=== PATIENT | male | born 1970 | race Caucasian/White ===

== ENCOUNTER → 2022-09-25 12:28 | Outpatient (CLI) | payer BC, SELFPAY ==
--- NOTE | ~2022-09-25 | MR_ITS ---
EXAMINATION: MR knee LT wo con DATE: 09/25/2022 13:10 INDICATION: Left knee pain and swelling TECHNIQUE: Magnetic resonance imaging (MRI) of the left knee was performed without intravenous contra st. Sequences included coronal PD-weighted FSE, coronal PD-weighted FS FSE, sagittal T2-weighted FSE , sagittal PD-weighted FS FSE and axial PD weighted fat saturated FSE. COMPARISON: None. FINDINGS: Medial compartment: Complex tear of the body and posterior horn of the medial meniscus with macerated appearance of the p osterior horn. Extensive full/near full-thickness chondral ulceration with underlying subarticular ed keturah-like and cystlike changes along large portion of the medial tibial plateau and central aspect of the weightbearing lateral femoral condyle. Moderate sized marginal osteophytes are present. Lateral compartment: Lateral meniscus is normal. Small region of deep chondral ulceration with underlying edema-like signa l change at the remaining cartilage in the lateral compartment appears normal. The cephalad aspect of the articular surface of the lateral intercondylar eminence. Small marginal osteophytes are present. Patellofemoral compartment: Chondral fissuring involving less than 50% the cartilage thickness at the cephalad aspect of the resendez llar apical ridge. Mild partial-thickness cartilage loss with chondral surface regularity at the caud al aspect of the medial and lateral patellar facets. Small central subchondral osteophytes and mild s ubarticular edema-like signal change at the inferior aspect of the medial trochlea at the site of marek p chondral ulceration. Small marginal osteophytes are present. Ligaments and tendons: Anterior and posterior cruciate ligaments are normal. The medial collateral ligament and fibular juan alberto ateral ligament complex are normal. Distal quadriceps tendinopathy without tear. Patellar tendon is n ormal. The visualized medial and lateral hamstring tendons as well as the iliotibial band are normal. Fluid: Small left knee joint effusion with moderate synovitis at the suprapatellar pouch. 2 to 3 mm loose os teochondral bodies at the posterior recess overlying the posterior most weightbearing lateral femoral condyle. Large Nath's cyst measuring 10.4 x 2.9 x 3.4 cm. Osseous/other: Bone alignment is normal. No fracture or pathologic marrow replacing process. No fracture or patholog ic marrow replacing process. IMPRESSION: 1. Complex medial meniscal tear. 2. Tricompartmental osteoarthritis, severe with extensive high-grade chondromalacia in the medial com partment and mild with localized small regions of high-grade chondral malacia in the lateral and resendez llofemoral compartments. 3. Likely reactive small knee joint effusion with prominent synovitis at the suprapatellar pouch. 4. Large Nath's cyst. Reviewed, dictated and finalized at location L. IMPRESSION: 1. Complex medial meniscal tear. 2. Tricompartmental osteoarthritis, severe with extensive high-grade chondromal acia in the medial compartment and mild with localized small regions of high-gr bandar chondral malacia in the lateral and patellofemoral compartments. 3. Likely reactive small knee joint effusion with prominent synovitis at the eckert prapatellar pouch. 4. Large Nath's cyst.
== END ==
PROVIDERS: PCP Internal Medicine; Visit Provider Orthopaedic Surgery
DX: S83.232A Complex tear of medial meniscus, current injury, left knee, initial encounter (principal); M25.462 Effusion, left knee; M71.22 Synovial cyst of popliteal space [Baker], left knee; M17.12 Unilateral primary osteoarthritis, left knee; T14.90XA Injury, unspecified, initial encounter
CPT/HCPCS: 73721

== ENCOUNTER → 2023-02-13 09:17 | Outpatient (CLI) | payer BC, SELFPAY ==
--- NOTE | ~2023-02-13 | XR_ITS ---
PA, oblique, and lateral views of the left second finger CLINICAL HISTORY: Injury FINDINGS: There is a transverse, essentially nondisplaced fracture of the distal tuft of the second d istal phalanx. No other fracture or dislocation seen. Joint spaces are preserved. Soft tissues are un remarkable. IMPRESSION: Transverse, nondisplaced fracture of the distal tuft of the second distal phalanx. Reviewed, dictated and finalized at location M. IMPRESSION: Transverse, nondisplaced fracture of the distal tuft of the second distal phala nx.
== END ==
PROVIDERS: PCP Nurse Practitioner; Visit Provider Nurse Practitioner
DX: M79.645 Pain in left finger(s) (principal); S62.661A Nondisplaced fracture of distal phalanx of left index finger, initial encounter for closed fracture
CPT/HCPCS: 73140

== ENCOUNTER → 2023-02-22 11:02 | Outpatient (CLI) | payer BC, SELFPAY ==
--- NOTE | ~2023-02-22 | XR_ITS ---
EXAMINATION: XR elbow RT min 3V INDICATION: Right elbow pain TECHNIQUE: Four views of the right elbow are obtained. COMPARISON: None available FINDINGS: Bone alignment is normal. There is no fracture. There is mild osteoarthritis of the elbow. No joint effusion is identified. Areas of heterotopic ossification in the olecranon and humeral condy les likely reflect enthesophytes versus tendinous calcification. IMPRESSION: 1. No acute osseous abnormality. Reviewed, dictated and finalized at location F.
== END ==
PROVIDERS: PCP Nurse Practitioner; Visit Provider Nurse Practitioner
DX: M25.521 Pain in right elbow (principal); W19.XXXA Unspecified fall, initial encounter
CPT/HCPCS: 73080

== ENCOUNTER 2023-09-01 08:31 | Emergency (ER) | payer BC, SELFPAY ==
[2023-09-01 08:36] VITALS: BP 139/88; PULSE 76; RESP 20; TEMP 36.7; O2SAT 100
--- NOTE | 2023-09-01 08:58 | ED.SKABFB ---
HPI - Skin/Abscess/Foreign Bdy General Chief complaint: Skin/Abscess/Foreign Body Stated complaint: Welts all over History of Present Illness HPI narrative: Patient presents with hives to both arms and legs. And abdomen. Patient states he had his eyes dilated Saturday and the hives broke out shortly afterwards. No respiratory problems patient has been taking Benadryl and some old prednisone that his had at home. Related Data Allergies Allergy/AdvReac Type Severity Reaction Status Date / Time itraconazole Allergy Unknown Unknown Verified 04/23/23 08:10 Review of Systems Review of Systems: CONSTITUTIONAL: Denies chills, or sweats. Reports fever and generalized body aches EYES: Denies visual changes, redness, or discharge. ENT: Denies otalgia. Reports nasal congestion runny nose and sore throat CARDIOVASCULAR: Denies chest pain, palpitations, or edema. RESPIRATORY: Denies dyspnea. Reports occasional cough GASTROINTESTINAL: Denies abdominal pain, nausea, vomiting, or diarrhea. GENITOURINARY: Denies dysuria or hematuria. SKIN: Denies rash or itching. MUSCULOSKELETAL: Denies back pain, joint pain, or myalgia. Reports generalized body aches NEUROLOGIC: Denies headache, numbness, or weakness. PSYCHIATRIC: Denies anxiety or depression. [facility] Past Medical History Medical History Acute deep vein thrombosis (DVT) of distal vein of left lower extremity Histoplasmosis pneumonia History of deep venous thrombosis (DVT) of distal vein of left lower extremity Hx of deep venous thrombosis Hx of histoplasmosis Hx of pulmonary embolus Osteoarthritis of left knee Pulmonary embolism and infarction Social History Social History Smoking packs per day: 1 Smoking cigarettes per day: 20.0 Years smoked: 20 Smoking pack-years: 20.00 Smoking status: Former smoker Tobacco type: cigarettes Second hand tobacco smoke exposure: Yes Smoking end date: 05/27/14 Alcohol intake: current Alcohol use details: Social Substance use: never Substance use type: does not use Lack of Transportation: No Lack of Food: Never True Current Housing: I Have Housing Concerned About Future Housing: No Difficulty Paying Gas/Electric Bills: No Difficulty Paying for Meds: No Currently Unemployed: No Education: High School Diploma/GED Difficulty w/ Childcare or Family Care: No Living arrangements: with family Occupation/Education: occupation 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 There is no relevant family history pertinent to the presenting complaint Exam Narrative: The patient is a well-developed, well-nourished in no acute distress. SKIN: Skin is warm and dry without erythema, swelling or exudate. There is good turgor. No tenting. Hives to both arms abdomen and both legs HEAD: Atraumatic. Normocephalic. No temporal or scalp tenderness. EYES: Moist and bright. Sclera and conjunctivae normal. No discharge. PERRLA. Extraocular motions intact. Gross visual acuity intact. EARS: Pinna is normal shape and contour. Clear external auditory canals. TM pearly truong with good cone of light, no erythema or suppuration. Bilateral cerumen noted no gross hearing deficit. NOSE: pink, moist mucosa with good air movement. Clear rhinorrhea without nasal flaring. Septum midline. Mouth: moist mucous membranes. THROAT; mild erythema noted to posterior oropharynx with moderate postnasal drainage. Without exudate or ulceration.. Uvula midline. Normal movement of soft palate. NECK: Supple and nontender with full range of motion without discomfort. No meningeal signs. LUNGS: Equal and bilateral breath sounds without wheezes, rales or rhonchi. CHEST: The chest wall is without retractions or use
[2023-09-01] MEDS: methylPREDNISolone SOD SUCC 125 MG VIAL IM (09:08)
== END 2023-09-01 09:23 | disposition home or self-care (01) ==
PROVIDERS: Emergency Provider Nurse Practitioner Family; PCP Family Medicine
DX: L50.9 Urticaria, unspecified (principal); Z87.891 Personal history of nicotine dependence; M17.12 Unilateral primary osteoarthritis, left knee; Z86.718 Personal history of other venous thrombosis and embolism; Z86.711 Personal history of pulmonary embolism
CPT/HCPCS: 96372; 99213; G0463; J2919

== ENCOUNTER 2023-10-04 08:02 | Emergency (ER) | payer BC, SELFPAY ==
[2023-10-04 08:07] VITALS: BP 140/90; PULSE 89; RESP 16; TEMP 36.4; O2SAT 98
--- NOTE | 2023-10-04 08:10 | ED.GENADULT ---
HPI - General Adult General Chief complaint: Skin/Abscess/Foreign Body Stated complaint: hives Time Seen by Provider: 10/04/23 08:15 Source: patient, RN notes reviewed and old records reviewed Mode of arrival: ambulatory Limitations: no limitations History of Present Illness HPI narrative: 53 year old male who presents to [facility] care with generalized hives which started last night and patient reports that he took some left over Prednisone. He reports that he awoke this morning with hives remaining and took another dose of prednisone and a Benadryl which has helped the itching and it has decreased the hives some. Patient reports no new food, no new environmental exposures, denies any new soaps,laundry detergents, no new medications. Patient reports that he had a similar episode about a month ago after having eyes dilated for eye exam but has not been to the eye doctor. Patient denies any difficulty swallowing or any difficulty with his breathing. MD complaint: hives Onset (ago): day(s) (yesterday evening) Severity: moderate Treatments prior to arrival: other (left over Prednisone and Benadryl) Related Data Allergies Allergy/AdvReac Type Severity Reaction Status Date / Time benoxinate Allergy Intermediate Hives Verified 10/04/23 08:18 tropicamide Allergy Intermediate Hives Verified 10/04/23 08:18 itraconazole Allergy Unknown Unknown Verified 10/04/23 08:18 fluorescein sodium Allergy Intermediate Hives Uncoded 10/04/23 08:18 Review of Systems Review of Systems: CONSTITUTIONAL: Denies fever, chills, or sweats. CARDIOVASCULAR: Denies chest pain, palpitations, or edema. RESPIRATORY: Denies cough or dyspnea. SKIN: Reports hives generalized to body MUSCULOSKELETAL: Denies joint pain or myalgia. NEUROLOGIC: Denies headache, numbness, or weakness. All systems reviewed & are unremarkable except as noted in HPI and below PMFSH Past Medical History Medical History Acute deep vein thrombosis (DVT) of distal vein of left lower extremity Histoplasmosis pneumonia History of deep venous thrombosis (DVT) of distal vein of left lower extremity Hx of deep venous thrombosis Hx of histoplasmosis Hx of pulmonary embolus Osteoarthritis of left knee Pulmonary embolism and infarction Social History Social History Smoking packs per day: 1 Smoking cigarettes per day: 20.0 Years smoked: 20 Smoking pack-years: 20.00 Smoking status: Former smoker Tobacco type: cigarettes Second hand tobacco smoke exposure: Yes Smoking end date: 05/27/14 Alcohol intake: current Alcohol use details: Social Substance use: never Substance use type: does not use Lack of Transportation: No Lack of Food: Never True Current Housing: I Have Housing Concerned About Future Housing: No Difficulty Paying Gas/Electric Bills: No Difficulty Paying for Meds: No Currently Unemployed: No Education: High School Diploma/GED Difficulty w/ Childcare or Family Care: No Living arrangements: with family Occupation/Education: occupation 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 There is no relevant family history pertinent to the presenting complaint Exam Narrative: GENERAL: Well-appearing, well-nourished, and in no acute distress. HEAD: Normocephalic, atraumatic. EYES: PERRLA, conjunctivae clear, and EOMI. ENT: Mucous membranes moist. Oropharynx without edema, erythema or lesions.m, no trismus or any Willie angina NECK: Supple. No lymphadenopathy CHEST: Clear to auscultation. No respiratory distress.SAO2 98% on room air HEART: Regular rate and rhythm. SKIN: Warm, dry.? Patches of red whelping hives on body which do jordi NEURO:? Alert and oriented x3. PSYCH: Normal mood and a
== END 2023-10-04 08:40 | disposition home or self-care (01) ==
PROVIDERS: Emergency Provider Registered Nurse; PCP Family Medicine
DX: L50.9 Urticaria, unspecified (principal); Z87.891 Personal history of nicotine dependence; M17.12 Unilateral primary osteoarthritis, left knee; Z86.718 Personal history of other venous thrombosis and embolism; Z86.711 Personal history of pulmonary embolism
CPT/HCPCS: 99213; G0463

== ENCOUNTER 2023-10-05 07:41 | Emergency (ER) | payer BC, SELFPAY ==
[2023-10-05 07:42] VITALS: BP 132/105; PULSE 80; RESP 16; TEMP 36.5; O2SAT 97
[2023-10-05] MEDS: EPINEPHrine HCL INJ 1 MG/ML AMPUL 0.3 MG SUB-Q (08:02)
[2023-10-05] MEDS: methylPREDNISolone SOD SUCC 125 MG VIAL IV PUSH (08:03)
[2023-10-05] MEDS: diphenhydrAMINE HCl INJ 50 MG/ML VIAL 25 MG IV PUSH (08:04)
[2023-10-05 08:31] VITALS: BP 123/63; PULSE 79; RESP 16; O2SAT 97
[2023-10-05 09:31] VITALS: BP 144/65; PULSE 82; RESP 21; O2SAT 95
--- NOTE | 2023-10-05 10:10 | ED.ALLEREA ---
HPI - Allergic Reaction General Chief complaint: Allergic Reaction Stated complaint: Allergic Reaction Time Seen by Provider: 10/05/23 07:44 Source: patient Mode of arrival: ambulatory Limitations: no limitations History of Present Illness HPI narrative: 53-year-old here with a complaint diffuse hives since this morning. Patient states that he had similar episode 2 days ago was at urgent care was given Medrol Dosepak, Pepcid and was advised to take Zyrtec. Patient states that he woke up as usual was drinking coffee of sudden broken wooden rash. Patient denies using any new detergents or so. No new antibiotics or medications. Also states that his throat is itchy and lips are swollen complaint: allergic reaction, hives and facial swelling Onset (ago): minute(s) (30) Exposure: unknown Symptoms: rash, itching, facial swelling and lip swelling Treatment prior to arrival: steroids Previous Allergic Reaction History: prior ED visit(s) Related Data Allergies Allergy/AdvReac Type Severity Reaction Status Date / Time benoxinate Allergy Intermediate Hives Verified 10/04/23 08:18 tropicamide Allergy Intermediate Hives Verified 10/04/23 08:18 itraconazole Allergy Unknown Unknown Verified 10/04/23 08:18 fluorescein sodium Allergy Intermediate Hives Uncoded 10/04/23 08:18 Review of Systems Review of Systems: All systems reviewed & are unremarkable except as noted in HPI and below Constitutional: Constitutional: Reports no additional constitutional complaints Eyes: Eyes: Reports no additional eye complaints ENT: Reports as per HPI Cardiovascular: Cardiovascular: Reports no additional cardiovascular complaints Respiratory: Respiratory: Reports no additional respiratory complaints Gastrointestinal: Gastrointestinal: Reports no additional gastrointestinal complaints Musculoskeletal: Musculoskeletal: Reports no additional musculoskeletal complaints Integumentary/Breasts: Skin/Breast: Reports system reviewed and no additional complaints, except as docu PMFSH Past Medical History Medical History Acute deep vein thrombosis (DVT) of distal vein of left lower extremity Histoplasmosis pneumonia History of deep venous thrombosis (DVT) of distal vein of left lower extremity Hx of deep venous thrombosis Hx of histoplasmosis Hx of pulmonary embolus Osteoarthritis of left knee Pulmonary embolism and infarction Social History Social History Smoking packs per day: 1 Smoking cigarettes per day: 20.0 Years smoked: 20 Smoking pack-years: 20.00 Smoking status: Former smoker Tobacco type: cigarettes Second hand tobacco smoke exposure: Yes Smoking end date: 05/27/14 Alcohol intake: current Alcohol use details: Social Substance use: never Substance use type: does not use Lack of Transportation: No Lack of Food: Never True Current Housing: I Have Housing Concerned About Future Housing: No Difficulty Paying Gas/Electric Bills: No Difficulty Paying for Meds: No Currently Unemployed: No Education: High School Diploma/GED Difficulty w/ Childcare or Family Care: No Living arrangements: with family Occupation/Education: occupation 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 HEAD: Normocephalic, atraumatic. EYES: PERRLA and EOMI. ENT: Nares clear, no rhinorrhea or epistaxis. Mucous membranes moist. Uvula midline no edema noted NECK: Supple. CHEST: Clear to auscultation. No respiratory distress. HEART: Regular rate and rhythm. No murmur heard. Normal peripheral pulses. ABDOMEN: Soft, nontender, nondistended, normal active bowel sounds. EXTREMITIES: Normal range of motion. No edema. SKIN: Diffuse hives NEURO: No focal deficits. Alert and oriented x3. PSYCH: Normal mood and
[2023-10-05 10:15] VITALS: BP 140/62; PULSE 72; RESP 16; O2SAT 100
== END 2023-10-05 10:15 | disposition home or self-care (01) ==
PROVIDERS: Emergency Provider Family Medicine; PCP Family Medicine
DX: L50.9 Urticaria, unspecified (principal); M17.12 Unilateral primary osteoarthritis, left knee; Z86.718 Personal history of other venous thrombosis and embolism; Z87.01 Personal history of pneumonia (recurrent); Z86.711 Personal history of pulmonary embolism; Z87.891 Personal history of nicotine dependence
CPT/HCPCS: 96372; 96374; 96375; 99284; J0171; J1200; J2919

== ENCOUNTER 2023-10-17 07:58 | Outpatient (CLI) | payer BC, SELFPAY ==
--- NOTE | ~2023-10-17 | XR_ITS ---
EXAMINATION: XR chest 2V 10/17/2023 08:13 INDICATION: Chest pain PROCEDURE: 2 view chest COMPARISON: Comparison to multiple prior studies sequentially, with oldest reviewed study dated 10/2018. FINDINGS: The lungs are clear. The cardiomediastinal silhouette is within normal limits. There are no pleural effusions. There is no pneumothorax suspected. IMPRESSION: 1: NO ACUTE CARDIOPULMONARY DISEASE. Reviewed, dictated and finalized at location A.
== END 2023-10-17 07:59 ==
LOC: MICIMG 08:00
PROVIDERS: PCP Family Medicine; Visit Provider Nurse Practitioner Family
DX: R07.9 Chest pain, unspecified (principal)
CPT/HCPCS: 71046

== ENCOUNTER 2023-10-18 15:03 | Outpatient (CLI) | payer BC, SELFPAY ==
--- NOTE | ~2023-10-18 | CT_ITS ---
EXAMINATION: CTA chest PE protocol DATE: 10/18/2023 15:48 INDICATION: Chest pain, unspecified. TECHNIQUE: Computed tomography angiography (CTA) of the chest was performed with 100 mL Omnipaque-350 intravenous contrast timed to evaluate the pulmonary arteries. Coronal maximum intensity projection 3D-reconstructions were created by the technologist. Automated exposure control and iterative reconst ruction technique were employed. The dose-length product was 381.97 mGy-cm. COMPARISON: Chest CT 05/26/2018 FINDINGS: There is mild emphysema. No pleural effusion. The heart size is normal. No pericardial effu [place]. There is no pulmonary embolus. There is thoracic dextroscoliosis. There is severe cervical and thoracic spondylosis. IMPRESSION: 1. No pulmonary embolus. Sensitivity is moderately decreased by motion artifact. 2. Mild emphysema. Reviewed, dictated and finalized at location A. IMPRESSION: 1. No pulmonary embolus. Sensitivity is moderately decreased by motion artifact . 2. Mild emphysema.
== END 2023-10-18 15:04 | disposition home or self-care (01) ==
LOC: ANHIMG 15:04
PROVIDERS: PCP Family Medicine; Visit Provider Nurse Practitioner Family
DX: R79.89 Other specified abnormal findings of blood chemistry (principal); J43.9 Emphysema, unspecified
CPT/HCPCS: 71275; Q9967

== ENCOUNTER 2023-12-19 07:56 | Outpatient (CLI) | payer BC, SELFPAY ==
--- NOTE | 2023-12-27 12:55 | WPDPFTINT ---
PFT Procedure Performed PFT Procedure Performed Spirometry with Pre/Post Bronchodilator Plethysmography (Lung Vol) Diffusing Cap (DLCO) Flow Vol Loop PFT Interpretation DOS: 12/19/2023 REQUESTING: Manda Vargas PA-C REASON FOR TESTING: Emphysema PULMONARY FUNCTION TESTS Results are reliable and reproducible. Repeatability of spirometry FEV1 maneuver pre and post bronchodilator is Grade A. Spirometry: The pre-bronchodilator FEV1 is 3.06 L, 74% predicted, reduced. The pre-bronchodilator FVC is 3.84 L, 73%, reduced. The FEV1/FVC ratio is 80%, normal. After bronchodilator, the FEV1 is 3.16 L, 77%, +3%. The FVC is unchanged. The FEV1/FVC ratio is 82%. Lung volumes: The total lung capacity is 6.23 L, 84%, normal. The residual volume is 2.39 L, 109%, normal. The RV/TLC is 38%, upper limit of normal. Diffusion: DLCO is 22.8, 73%, mildly reduced. The DLCO/VA is 4.67, 107%, normal. Flow volume loop: The flow volume loop has mild coving of the expiratory limb. IMPRESSION: This study shows a mild obstructive ventilatory impairment without significant response to bronchodilator, normal lung volumes and a mild diffusion impairment that normalizes for alveolar volume. Lack of response to bronchodilator should not preclude use if clinically indicated. No prior studies for comparison. Erin Del Real MD
--- NOTE | 2023-12-27 13:05 | WPDSIXMINUTE ---
Six Minute Walk Procedure Procedure Performed Pulmonary Stress Test (6 min walk) Six Minute Walk Six Minute Walk: DOS: 12/19/2023 REQUESTING: Manda Vargas PA-C REASON FOR TESTING: Emphysema SIX MINUTE WALK This test was conducted per ATS guidelines. The initial saturation was 97%, and initial heart rate was 84 beats per minute. The patient walked without stopping, completing 1900 ft/579.1 m. The saturation at the end of testing was 95%, and the heart rate was 89 beats per minute. The minimum saturation during the study was 92%. IMPRESSION: This is a normal study. The patient did not require supplemental oxygen with exertion. Erin Del Real MD
== END 2023-12-19 07:57 | disposition home or self-care (01) ==
PROVIDERS: PCP Nurse Practitioner Family; Visit Provider Physician Assistant
DX: J43.9 Emphysema, unspecified (principal)
CPT/HCPCS: 94060; 94618; 94726; 94729

== ENCOUNTER 2024-01-16 09:38 | Outpatient (CLI) | payer BC, SELFPAY ==
--- NOTE | 2024-02-07 16:11 | P.SLEEP_ITS ---
Sleep Study Date of Study: 01/16/24 Ordering Provider: AG Alvarado Interpreting Physician: Carmen Colon DO Sleep Study Type: Split Polysomnogram Height: 1.83 m Weight: 83.915 kg Body Mass Index: 25.0 Neck Circumference (inches): 15 [place]: 6 Reason for Sleep Study Snoring, daytime hypersomnia Sleep History The patient is a 54-year-old male with anxiety, GERD and COPD that had a sleep study are hard for evaluation of sleep apnea. The patient rarely awakens from sleep short of breath. He denies awakening at night with heartburn, belching or cough. He frequently snores and it is occasionally loud enough that others complain. He rarely has trouble sleeping when he has a cold. He rarely wakes up gasping for air throughout the night. He rarely has breathing problems at night observed by himself or others. He denies sweating excessively at night. He denies having heart palpitations or irregular heartbeats during the night. He occasionally falls asleep during the day but never while driving. He denies sleep paralysis and cataplexy. He rarely has trouble at school or work due to sleepiness. He rarely experiences vivid dreamlike scenes upon awakening or falling asleep. He denies feeling afraid of going to sleep. He rarely has nightmares. He rarely remembers his dreams. He rarely has thoughts racing through his mind. He rarely feels sad or depressed. He rarely has anxiety. He rarely has muscular tension. He occasionally notices parts of his body jerk. He frequently kicks during the night. He denies having crawling and aching feelings in his legs and denies having leg pain during the night. He denies grinding his teeth during sleep and denies awakening with morning jaw pain. He is rarely bothered by pain during the day but never awakened by pain during the night. He occasionally wakes up feeling stiff in the morning. He occasionally wakes up with sore or achy muscles. He denies waking up with pain in the neck, spine or other joints. The goes to bed at 8:00 p.m. on weekdays and at 9:00 p.m. on the weekends. It takes him 20-30 minutes to fall asleep. He wakes up 2-3 times throughout the night to urinate and is able to fall back asleep within 5-10 minutes. He wakes up at 6:00 a.m. on weekdays and at 7:00 a.m. on the weekends. He typically gets 8-9 hours of sleep per night. He will stay in bed for 30 minutes after waking up in the morning. He currently lives with his girlfriend. He denies consuming any caffeinated beverages within 2 hours of bedtime. He denies engaging in physical exercise before bedtime. He will read before falling asleep. He will take naps in the afternoon or the evening and they are refreshing. He consumes 20 oz of a caffeinated beverage per day. He consumes an alcoholic beverage once per month. He denies tobacco and recreational drug use. [facility] Past Medical History Medical History Acute deep vein thrombosis (DVT) of distal vein of left lower extremity Histoplasmosis pneumonia History of deep venous thrombosis (DVT) of distal vein of left lower extremity Hx of deep venous thrombosis Hx of histoplasmosis Hx of pulmonary embolus Osteoarthritis of left knee Pulmonary embolism and infarction Social History Social History Smoking packs per day: 1 Smoking cigarettes per day: 20.0 Years smoked: 20 Smoking pack-years: 20.00 Smoking status: Former smoker Tobacco type: cigarettes Second hand tobacco smoke exposure: Yes Smoking end date: 05/27/14 Alcohol intake: current Alcohol use details: Social Substance use: never Substance use type: does not use Do You Feel Safe in your Home?: Yes Lack of Transportation: No Lack of Food: Never True Current Housing: I Have Housing Concerned About Future Housing: No Difficulty Paying Gas/Electric Bills: No Difficulty Paying for Meds: No Currently Unemployed: No Education: High School Diploma/GED Difficulty w/ Childcare or Family Care: No Living arrangements: with family Occupation/Education: occupation 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 Gender identity (if verbalized by the patient): Male Medications Home Medications Medication Instructions Recorded Confirmed Type epinephrine 0.3 mg/0.3 mL 0.3 mg (0.3 mL) IM ONCE #2 ea 10/07/23 12/09/23 Rx injection, auto-injector omeprazole 40 mg capsule,delayed 40 mg PO DAILY #90 caps 10/17/23 12/09/23 Rx release albuterol sulfate 90 mcg/actuation 2 inh inhalation Q4H PRN shortness 10/31/23 12/09/23 Rx aerosol inhaler of breath or wheezing #8.5 grams tiotropium bromide 2.5 2 inh inhalation DAILY #4 grams 10/31/23 12/09/23 Rx mcg/actuation mist for inhalation (Spiriva Respimat) celecoxib 200 mg capsule (Celebrex) 200 mg PO DAILY #30 caps 12/03/23 12/09/23 Rx escitalopram oxalate 10 mg tablet 10 mg PO DAILY #90 tabs 12/03/23 12/09/23 Rx eszopiclone 2 mg tablet (Lunesta) 2 mg PO ONCE #1 tablet 12/09/23 12/09/23 Rx Sleep Procedure A full night polysomnogram using the You[employer] multi-channel system recorded the standard physiologic parameters including EEG, EOG, submentalis EMG, anterior tibialis EMG, EKG, body position, nasal and oral airflow using nasal pressure sensor and thermistor.? Respiratory parameters of chest and abdominal movements were recorded with Respiratory Inductance Plethysmography belts. Oxygen saturation was recorded by pulse oximetry. Video monitoring was also performed. Sleep stages, periodic limb movements, and EEG arousals were scored in 30 second epochs according to the criteria of the AASM Scoring Manual. The Apnea-Hypopnea Index was calculated using CMS guidelines for definition of hypopnea with 4% O2 desaturations while scoring respiratory events. Sleep Architecture During the diagnostic portion of the study, the total recording time was 179.3 minutes. The total sleep time was 132.5 minutes. Sleep latency was 19.3 minutes.? REM sleep was not achieved during this portion of the study. Sleep Efficiency was 73.9%. The patient had 21 awakenings for an awakening index of 9.5. Wake after sleep onset time was 27.5 minutes. The patient spent 14.5 minutes, 10.9% of total sleep time in Stage N1. The patient spent 93.0 minutes, 70.2% in Stage N2. The patient spent 25.0 minutes, 18.9% in Stage N3. The patient spent 0.0 minutes, 0.0% in Stage REM sleep. At 11:56:43 PM the patient was placed on PAP treatment and was titrated at pressures ranging from 5 cm H20 up to 12 cmH20 with EPR of 1. During the treatment portion of the study, the total recording time was 341.6 minutes.? The total sleep time was 244.5 minutes. Sleep latency was 40.5 minutes. REM latency was 80.0 minutes. Sleep Efficiency was 71.6%. Wake after Sleep Onset time was 56.5 minutes. The patient spent 25.5 minutes, 10.4% of total sleep time in Stage N1. The patient spent 107.5 minutes, 44.0% in Stage N2. The patient spent 66.5 minutes, 27.2% in Stage N3. The patient spent 45.0 minutes, 18.4% in Stage REM. Respiratory Analysis During the diagnostic portion of the study, the patient had 30 hypopneas, 30 obstructive apneas for an overall Apnea Hypopnea Index of 27.2 events per hour. The REM Apnea Hypopnea Index was 0. The NREM Apnea Hypopnea Index was 27.2. The patient had a Central Apnea Hypopnea Index of 0. There was no evidence of Gato-Leal Respirations. During the treatment portion of the study, the patient had 10 hypopneas, 6 obstructive apneas and 8 central apneas for an overall Apnea Hypopnea Index of 5.9 events per hour. The REM Apnea Hypopnea Index was 1.3. The NREM Apnea Hypopnea Index was 6.9. The patient had a Central Apnea Hypopnea Index of 2.0. There was no evidence of Gato-Leal Respirations. The patient was started on CPAP 5 cm H2O and titrated to CPAP 12 cm H2O with EPR of 1. The patient was able to fall asleep starting on 5 cm H2O with EPR of 1. The patient was able to achieve REM sleep starting on 7 cm H2O with EPR of 1. The patient was able to achieve a residual AHI less than 5 with both NREM and REM sleep in the supine position on 7 cm H2O. On CPAP 7 cm H2O with EPR of 1, the patient spent 31.5 minutes in NREM and 26 minutes in REM with 1 central apnea, resulting in an AHI of 1.0. The patient had a sleep efficiency of 95% on this pressure setting. Arousals During the diagnostic portion of the study, there were a total of 272 arousals for an arousal index of 123.2.? There were 39 respiratory arousals for an index of 17.7. There were 206 periodic limb movement arousals for an index of 93.3.? There were 3 isolated limb movement arousals for an index of 1.4. There were 26 spontaneous arousals for an index of 11.8. During the treatment portion of the study, there were a total of 87 arousals for an index of 21.3.? There were 5 respiratory arousals for an index of 1.2. There were 45 periodic limb movement arousals for an index of 11.0.? There were 13 isolated limb movement arousals for an index of 3.2. There were 26 spontaneous arousals for an index of 6.4. Periodic Limb Movements During the diagnostic portion of the study, the patient had 4 isolated limb movements with an index of 1.8. The patient had 353 periodic limb movements with an index of 159.8, which is elevated (normal <15). The patient had a total of 357 limb movements with a total limb movement index of 161.7. During the treatment portion of the study, the patient had 35 isolated limb movements with an index of 8.6. The patient had 246 periodic limb movements with an index of 60.4, which is elevated (normal <15). The patient had a total of 281 limb movements with a total limb movement index of 69.0. Oximetry Data During the diagnostic portion of the study, the patient had an average oxygen saturation of 93.5% in wake with a minimum oxygen saturation of 81% and a maximum oxygen saturation of 98%. The patient had an average oxygen saturation of 92.2% in sleep with a minimum oxygen saturation of 79.0% and a maximum oxygen saturation of 97.0%. The patient had 70 oxygen desaturations resulting in an Oxygen Desaturation Index of 31.7. The patient spent 7.5 minutes, 4.2% of total sleep time with an oxygen saturation less than 88%. During the treatment portion of the study, the patient had an average oxygen saturation of 95.0% in wake with a minimum oxygen saturation of 82.0% and a maximum oxygen saturation of 99.0%. The patient had an average oxygen saturation of 93.9% in sleep with a minimum oxygen saturation of 86.0% and a maximum oxygen saturation of 98.0%. The patient had 27 oxygen desaturations resulting in an Oxygen Desaturation Index of 6.6. The patient spent 3.5 minutes, 1% of total sleep time with an oxygen saturation less than 88%. Snoring Profile Moderate to loud snoring was present in the baseline portion of the study. The snoring resolved once the patient was titrated to 8 cm H2O. Cardiac Profile The EKG lead showed normal sinus rhythm. No arrhythmias or PVCs were seen. During the diagnostic portion of the study, the average pulse rate was 75.1 bpm.? The minimum pulse rate was 61.0 bpm. The maximum pulse rate was 105.0 bpm. During the treatment portion of the study, the average pulse rate was 60.8 bpm.? The minimum pulse rate was 47.0 bpm. The maximum pulse rate was 95.0 bpm. EEG Profile No signs of seizure activity seen. Assessment and Plan Assessment and Plan (1) JASS (obstructive sleep apnea): Code(s): G47.33 - Obstructive sleep apnea (adult) (pediatric) Status: Acute Assessment and Plan: In the baseline portion of the study, the patient had an overall AHI of 27.2 with desaturation down to 79%. This is consistent with moderate sleep apnea. The patient was started on CPAP 5 cm H2O and titrated to CPAP 12 cm H2O with EPR of 1. I recommend that the patient be prescribed Resmed AirSense 11 CPAP at 7 cm H2O with EPR of 1, size medium Resmed AirFit N20 nasal mask, CPAP filters/tubing and heated humidity. This should be used with all episodes of sleep.? Compliance should be reviewed within 31-90 days of starting therapy for usage greater than 4 hours per night greater than 70% of the nights. The patient should be asked about symptoms such as?excessive daytime sleepiness, quality of sleep, decreased nocturia, increased?mental functioning such as memory, mood, and concentration. While the patient did have a significant number of periodic limb movements during the study, the frequency greatly reduced once the patient reached the optimal CPAP pressure setting. I recommend asking the patient about leg movements during his first CPAP compliance visit. Data The data obtained during this sleep study is adequate for interpretation. Certification This sleep study has been reviewed by a board certified sleep medicine physician.
[2024-02-08 15:06] VITALS: BMI 25.0
== END 2024-01-17 06:03 | disposition home or self-care (01) ==
LOC: ANHCSM 09:39
PROVIDERS: PCP Nurse Practitioner Family; Visit Provider Physician Assistant
DX: G47.33 Obstructive sleep apnea (adult) (pediatric) (principal); G47.10 Hypersomnia, unspecified; R06.83 Snoring; J43.9 Emphysema, unspecified; R35.1 Nocturia; Z87.891 Personal history of nicotine dependence
CPT/HCPCS: 95811

== ENCOUNTER 2024-10-20 07:33 | Outpatient (CLI) | payer BC, SELFPAY ==
--- NOTE | ~2024-10-20 | CT_ITS ---
EXAMINATION: CT lung screening DATE: 10/20/2024 07:53 INDICATION: Personal history of nicotine dependence. TECHNIQUE: Computed tomography (CT) of the chest was performed without intravenous contrast. The dose -length product was 110.09 mGy-cm. Automated exposure control and iterative reconstruction technique were employed. COMPARISON: CT dated 10/18/2023 FINDINGS: Heart size normal. No significant pleural or pericardial effusion. Visualized aspects of th e upper abdomen are unremarkable. No thoracic lymphadenopathy. There is mild emphysema. No endobronch ial lesions. There is a 2 mm right perifissural nodule, likely benign. There is a 6 mm perifissural t here is a 6 mm left lower lobe nodule, image 89. Prior study was limited by motion artifact. No endob ronchial lesions. Moderate thoracic spondylosis. There is dextroscoliosis of the thoracic spine. Left upper lobe nodule, image 45. IMPRESSION: 1. Lung-RADS category 3: Probably benign. Further evaluation is recommended with noncontrast low-dose chest CT in 6 months. Reviewed, dictated and finalized at location A. IMPRESSION: 1. Lung-RADS category 3: Probably benign. Further evaluation is recommended wit h noncontrast low-dose chest CT in 6 months.
--- OUTSIDE RECORDS SUMMARY | 2024-10-20 07:40 | XMS_ITS | Data Portability ---
Author Organization [place] - [place] [employer], Main Office Address [address] [place] [address] Care Team Providers Care E Business Specialist Name Role Phone RICHARDPAUL Primary Care Provider RICHARD PAUL Referring Provider [phone] Assessment Encounter Date Assessment Date Assessment LastModified by Organization Details LastModified Time 05/08/2023 05/08/2023 impression: Patient has eikn-fb-njza medial compartment osteoarthritis in the knee is bent little bit. He is 53 and very active. I have discussed with him that the surgical treatment for this problem would be knee replacement. Due to the severity of his underlying arthritis, arthroscopic debridement of the medial meniscus would not be expected to give him any relief and therefore would not be recommended. He remains highly functional at this time. Knee replacement would be recommended when his pain and functional limitations became significant. 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 Unfortunately, if he has knee replacement at his young age with his higher level of activity, the likelihood of premature failure due to wear and loosening is higher and the likelihood of needing revision surgery during his lifetime his higher so it is best for him to put this off as long as possible. . He did seem to get very good relief from last cortisone shot. He can continue with the Celebrex and periodic cortisone injections as long as they are necessary and well tolerated. Will plan on seeing him back in 2 months in 1 week and we can consider giving him another cortisone shot in the left knee if he would like to have that done. His questions were answered. 45 minutes were spent in total care this patient more than half the time spent in upbq-zg-rgnt care. Not available 05/21/2023 18:02:53 07/17/2023 07/17/2023 HPI: Patient returns. He is here for cortisone injection left knee. Last shot was 3 months ago. He does have qcvr-tn-lywk medial compartment osteoarthritis. Takes Celebrex but only when the injection wears off after about 2 and half months. He wishes to continue with injections at this point. Physical exam: 53-year-old male alert pleasant. He walks well today without limp or assistance. He has mild effusion in the left knee. Range of motion is from 3-135 degrees. Mild tenderness over the medial joint line to palpation. After Betadine alcohol prep 20 mg Kenalog and 3 cc of 0.5% ropivacaine was injected into the left knee. Impression: 53-year-old male who has severe medial compartment osteoarthritis in the left knee. Shots continue to give him good relief. We will see him in 3 months. [email or web address] Not available 07/17/2023 09:30:13 Plan of Treatment Reminders Order Date Submit Date Provider Last Modified By Organization Details Last Modified Time Details Appointments None recorded. Lab None recorded. Referral None recorded. Procedures injection/a spiration joint/bursa (PROC) - in office procedure, administere d by provider 2023 024 [email or web address] In-Office Order, Internal Use Only DO Not Attach Compendium DO Not Attach Compendium, Do Not Delete/merge, [id number] 4 08:47:56 Surgeries None recorded. Imaging XR, knee 2022 023 [email or web address] [facility], [address], [place], [address], 3 15:14:32 Medication Orders Kenalog 10 mg/mL suspension for injection 2023 024 [facility], [address] [place] [address], [address], 4 16:42:23 ropivacaine (PF) 5 mg/mL (0.5 %) injection solution 2023 024 [facility], [facility], [place], [address], 4 16:42:23 Patient TargetsNo targets recorded. Patient InstructionsNo instructions recorded. Reason for Referral None Reported. Results Created Date Observation Date Name Description Value Unit Range Abnormal Flag Note LastModifiedBy Organization Detail LastModifiedTime 04/24/2009/25/2022 MRI, knee, w/o contr ast No observ ation record ed. [email or web address] Not Available 03/28 10:24:19 04/24/20 23 02/22/2023 XR, elbow , 3 or more view No observ ation record ed. [email or web address] Not Available 03/28 10:24:19 05/08/20 XR, knee No observ ation record ed. [address] [place] [address] [facility] [address], [place], [address], 05/21/2023 17:59:14 Result Notes None recorded. 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 Medical Equipment None Reported. Allergies Allergen ID Allergen Name Allergen Category Reaction Reaction Severity Criticality Documentation Date Start Date Code Code System Note Provider Name and Address Organization Details Recorded Time 24286 itraconaz ole medicatio n rash Not available Not available 07/25/2022 20587 RxNorm Not Available [facility] 3 20:39:10 Medications Name Sig Start Date Stop Date Status Note LastModified by Organization Details LastModified Time celecoxib 200 mg capsule active Not Available Not Available Not Available ondansetron HCl 8 mg tablet TK 1 T PO BID PRN N 07/03 completed Not Available Not Available Not Available tramadol 50 mg tablet 07/03 completed Not Available Not Available Not Available warfarin 6 mg tablet Take 1 tablet every day by oral route. 05/08 completed Not Available Not Available Not Available Kenalog 10 mg/mL suspension for injection in office 2023 active [facility]: 0003- 0494- 20 Not Available Not Available Not Available orphenadrin e citrate ER 100 mg tablet,exte nded release TK 1 T PO Q 12 H PRF MSP 07/03 completed Not Available Not Available Not Available montelukast 10 mg tablet Take 1 tablet every day by oral route. 05/08 completed Not Available Not Available Not Available itraconazol e 100 mg capsule Take 4 capsules every day by oral route. 05/08 completed Not Available Not Available Not Available escitalopra m 10 mg tablet active Not Available Not Available Not Available ropivacaine (PF) 5 mg/mL (0.5 %) injection solution in office 2023 active [facility] [address] -064- 01 Not Available Not Available Not Available Vitals Date Recorded Body height Provider Name an d Address Organization Details Last Updated DateTime 07/17/2023 182.88 cm Bea Napoleon [employer] 07/17/2023 08:45:49 Date Recorded Body height Body mass index (BMI) Body weight Provider Name and Address Organization Details Last Updated DateTime 05/08/2023 182.88 cm 24.9 kg/m2 46763.56 g Bea Bender [employer] 05/08/2023 10:38:32 Social History None recorded. Functional Status None recorded. Mental Status None recorded. Family History Nothing Reported. Medical History Condition Response BLINDNESS N KIDNEY STONES N CARPAL TUNNEL SYNDROME N MRSA N LUNG DISEASE/DISORDER N HISTORY OF DRUG ABUSE N RADIATION / CHEMOTHERAPY N COPD N ANKLE PAIN N SPORTS INJURY N BLOOD DISEASES N PAST SPINAL SURGERY N SCHIZOPHRENIA N SHINGLES N DEPRESSION (INCLUDING POST ) N SHOULDER PAIN N BOWEL PROBLEMS N FAILED BACK SYNDROME N STROKE/TIA N KNEE PAIN N ULCERS N OTHER MODALITIES N BENIGN PROSTATIC HYPERPLASIA N OBESITY N GERD/NAUSEA N ANEURYSM N URINARY/BLADDER/KIDNEY PROBLEMS N CORONARY ARTERY DISEASE (CAD) N Do you have Advance directive? N ADDICTION CONCERNS N USE OF BLOOD THINNERS N SKIN PROBLEMS N EMPHYSEMA N MUSCLE,JOINT OR BONE PROBLEMS N DVT N STOMACH ULCERS N BLOOD CLOTS N PAST HISTORY OF VEHICULAR ACCIDENT N USE OF NSAIDS N CONCUSSION OR SPINAL TRAUMA N ARTERIAL INSUFFICIENCY N NEUROPATHY N AIDS/HIV N FRACTURES N ELBOW PAIN N HYPERTENSION N TOURETTE'S N ANXIETY DISORDER N Metal allergy N BLOOD TRANSFUSION N ANEMIA/BLOOD DISORDER N BIPOLAR DISORDER N BRONCHITIS N OSTEOARTHRITIS N TUBERCULOSIS N FOOT PROBLEM N HEART VALVE DISORDERS N SLEEP APNEA N ALLERGIES/HAYFEVER N SOFT TISSUE INJURY N BACK INJECTIONS N INFECTIOUS DISEASE N HEART ARRHYTHMIA N INSOMNIA N ESRD N PAST INTERVENTIONAL PAIN MANAGEMENT HIST ORY N HIGH CHOLESTEROL / HYPERLIPIDEMIA N RHEUMATOID ARTHRITIS N PAST MEDICATION HISTORY N PVD N EDEMA N CHRONIC PAIN SYNDROME N CAROTID BLOCKAGE N BACK / NECK PROBLEMS N HAVE YOU BEEN HOSPITALIZED OR SEEN IN [facility] ER IN THE PAST YEAR ? N BURSITIS N HERNIATED DISC N DIALYSIS N POLYCYSTIC OVARIES N FIBROMYALGIA N OSTEOPOROSIS N ARTHRITIS N RESPIRATORY PROBLEMS N NO SIGNIFICANT PAST MEDICAL HISTORY N PAST HISTORY OF FALL N PERIPHERAL NEUROPATHY N DIABETES, TYPE N VON WILLIBRAND'S DISEASE N HEARTBURN / REFLUX N POST LAMINECTOMY SYNDROME N HEPATITIS / LIVER DISEASE N GOUT N SLEEP DISORDER N ALZHEIMER'S DISEASE N HERPES N HEADACHES/MIGRAINES N SEIZURES/EPILEPSY N VASCULAR DISEASE N Blood Disorder N HIP PAIN N DIZZINESS N HEAD TRAUMA OR INJURY N HEART DISEASE/HEART PROBLEMS N MULTIPLE SCLEROSIS N NEUROPSYCHOLOGICAL N CARDIAC ARRHYTHMIA N CANCER: SPECIFY N ANESTHESIA COMPLICATIONS N ATRIAL FIBRILLATION N AUTOIMMUNE DISEASE N Past Encounters Encounter ID Performer Location Encounter Start Date Encounter Closed Date Diagnosis/Indication Diagnosis SNOMED-CT Code Diagnosis ICD10 Code Diagnosis Note [id number] Yohannes Patricia MD [facility] [place] [address] [place] [address] 05/08/2023 09:44:39 05/22/2023 15:14:32 Pain of left knee joint 2488639330 17885 M25.220 [id number] Yohannes Patricia MD [facility] [place] [address] [place] [address] 07/17/2023 08:43:07 07/17/2023 10:02:22 Osteoarthritis of left knee joint 8474403915 95903 M17.12 Health Concerns Section Related Observation LastModified by Organization Detai ls LastModified Time None Recorded Concern Status LastModified by Organization Details LastModified Time None Recorded Advance Directives Directive None Recorded Payers Encounter Date Sequence Insurance Name Policy Number Policy Jernigan Covered Member ID Jernigan Member ID Guarantor Name 05/08/2023 1 [place] [id number] Chino Wong [id number] Chino Wong 07/17/2023 1 [place] [id number] Chino Wong [id number] Chino Wong Notes Date Note Type Note Provider Name and Address Organization Details Recorded Time 05/08/2023 text/html Patient is a 53-year-old gentleman who is referred for evaluation of his left knee. He had a cortisone shot in his left knee [address] Rosario. he has osteoarthritis in his left knee. He is here to discuss additional treatment options. He is taking Celebrex 200 mg once daily. 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 He still play softball on a regular basis. His the symptoms are definitely worse with softball in the ER with work. His knee pain is not particularly bothersome from the fall the spring and he rarely takes the Celebrex during that time but with softball he has significant problems. His past history is significant for history of histoplasmosis pneumonia which she believes [place] He was in the ICU at [facility] for 22 days. He suffered from blood clots in his legs at that time. This was in 2018. He had MRI scan of left knee September 25, 2022 which showed complex tearing of the medial meniscus with macerated appearance to the posterior horn and high-grade cartilage loss with underlying subarticular edema like cyst-like changes along the large portion of medial tibial plateau and central aspect of the weight-bearing medial femoral condyle. Moderate-sized marginal osteophytes were present. Chondral fissuring noted with milder cartilage loss of the patella and inferior medial trochlea. Localized small region of high-grade chondral malacia in the lateral compartment. Large Nath cyst was noted small knee effusion prominent synovitis and suprapatellar pouch noted. I reviewed x-rays from 07/31/2022 which on the AP view show remz-ht-lmncrngp narrowing and sclerosis in the medial compartment joint space. The lateral view where the knee is flexed about 30 seems to suggest that there is jzml-dk-njqz contact medial compartment. Anvil osteophyte is noted. Yohannes Patricia MD [address] [place] [address], [place] [address], [place], [address], [place] [facility] 05/21/2023 18:03:09
== END 2024-10-20 07:34 | disposition home or self-care (01) ==
PROVIDERS: PCP Nurse Practitioner Family; Visit Provider Physician Assistant
DX: Z12.2 Encounter for screening for malignant neoplasm of respiratory organs (principal); Z87.891 Personal history of nicotine dependence
CPT/HCPCS: 71271

== ENCOUNTER 2025-01-28 08:02 | Outpatient (CLI) | payer BC, SELFPAY ==
--- NOTE | ~2025-01-28 | XR_ITS ---
EXAM/ PROCEDURE: XR shoulder LT min 2V - 01/28/2025 8:08 CDT HISTORY: 54 years old Male with M25.512 - Pain in left shoulder COMPARISON: None available TECHNIQUE: Three view(s) FINDINGS/ IMPRESSION: There are no fractures or dislocations.Joint space narrowing, subchondral sclerosis, subchondral cyst formation and osteophyte formation, compatible with mild osteoarthritis. Reviewed, dictated and finalized at location N.
== END 2025-01-28 08:03 | disposition home or self-care (01) ==
LOC: MICIMG 08:04
PROVIDERS: PCP Orthopaedic Surgery; Visit Provider Nurse Practitioner Family
DX: M25.512 Pain in left shoulder (principal)
CPT/HCPCS: 73030

== ENCOUNTER 2025-03-17 13:55 | Outpatient (CLI) | payer BC, SELFPAY ==
--- NOTE | ~2025-03-17 | US_ITS ---
US soft tissue LE LT 03/17/2025 14:37 Indication: Synovial cyst of the popliteal space Procedure: High-resolution soft tissue ultrasound of the left popliteal space Comparison: No prior studies for comparison. Findings: There is a large minimally complicated cyst of the left popliteal space measuring 8.5 x 2.1 x 4.5 cm without internal vascularity, compatible with benign Nath's cysts. Impression: 1: Large Nath's cyst of the left popliteal space. Reviewed, dictated and finalized at location O. Impression: 1: Large Nath's cyst of the left popliteal space.
--- OUTSIDE RECORDS SUMMARY | 2025-03-17 18:02 | XMS_ITS | Data Portability ---
Author Organization [place] - [place] [employer] Main Office Address [address] [place] [address] Care Team Providers Care Banbury Mill Operator Name Role Phone RICHARDPAUL Primary Care Provider RICHARDPAUL Referring Provider [phone] Assessment Encounter Date Assessment Date Assessment LastModified by Organization Details LastModified Time 05/08/2023 05/08/2023 impression: Patient has ajuu-yv-qcga medial compartment osteoarthritis in the knee is [...] more than half the time spent in wigq-mt-bluj care. Not available 05/21/2023 18:02:53 07/17/2023 07/17/2023 HPI: Patient returns. He is here for cortisone injection left knee. Last shot was 3 months ago. He does have yewn-qm-taol medial compartment osteoarthritis. Takes Celebrex but only [...] procedure, administere d by provider 2023 024 [email or web address] In-Office Order, Internal Use Only DO Not Attach Compendium DO Not Attach Compendium, Do Not Delete/merge, [id number] 4 08:47:56 Surgeries None recorded. Imaging XR, knee 2022 023 [facility], [address] [facility] [address], [place], [address], 3 15:14:32 Medication Orders Kenalog 10 mg/mL suspension for injection 2023 024 [facility], [address] [place] [address], [address], 4 16:42:23 ropivacaine (PF) 5 mg/mL (0.5 %) injection solution 2023 024 [facility], [facility] [place], [address], 4 16:42:23 Patient TargetsNo targets recorded. Patient [...] XR, knee No observ ation record ed. [facility] [place] [address] [facility] [address], [place], [address], 05/21/2023 17:59:14 Result Notes None recorded. Problems Name Problem SNOMED Code Status Onset Date Resolution Date Notes Provider Name and Address Organization Details Recorded Time Acute pulmonary histoplasm osis 32739516 Active 2018 Not Available [facility] 3 20:37:55 Pain of left knee joint 7235068498415 07 Active 2022 CIELO Madden, [facility] [employer] [facility] 3 10:10:56 Osteoarthr itis of left knee joint 4420301975212 09 Active 2023 CIELO Madden, [place] [employer] [facility] 4 08:47:44 Problem Notes None recorded. Medical Equipment None Reported. Allergies Allergen ID Allergen Name Allergen Category Reaction Reaction Severity Criticality Documentation Date Start Date Code Code System Note Provider Name and Address Organization Details Recorded Time 82661 itraconaz ole medicatio n rash Not available Not available 07/25/2022 14419 RxNorm Not Available [facility] 3 20:39:10 Medications Name Sig Start Date [...] suspension for injection in office 2023 active [facility]: 0003- [phone]- 20 Not Available Not Available [...] %) injection solution in office 2023 active [facility] [address]- [phone] Not Available Not Available Not Available Vitals Date Recorded Body height Provider Name an d Address Organization Details Last Updated DateTime 07/17/2023 182.88 cm Beadon Bender [employer] 07/17/2023 08:45:49 Date Recorded Body height Body mass index (BMI) Body weight Provider Name and Address Organization Details Last Updated DateTime 05/08/2023 182.88 cm 24.9 kg/m2 06413.56 g Bea Bender [employer] 05/08/2023 10:38:32 Social History None recorded. Functional Status None recorded. Mental Status None recorded. Family History Nothing Reported. Medical History Condition Response BLINDNESS N KIDNEY STONES N MRSA N CARPAL TUNNEL SYNDROME N LUNG DISEASE/DISORDER N HISTORY OF DRUG ABUSE N RADIATION / CHEMOTHERAPY N COPD N SPORTS INJURY N ANKLE PAIN N BLOOD DISEASES N PAST SPINAL SURGERY N SCHIZOPHRENIA N SHINGLES N BOWEL PROBLEMS N SHOULDER PAIN N DEPRESSION (INCLUDING POST ) N FAILED BACK SYNDROME N STROKE/TIA N [...] HAVE YOU BEEN HOSPITALIZED OR SEEN IN [facility] ER IN THE PAST YEAR ? [...] Diagnosis SNOMED-CT Code Diagnosis ICD10 Code Diagnosis IMO Codes Diagnosis Note [id number] Yohannes Patricia MD [facility] [place] [address] [place] [address] 05/08/2023 09:44:39 05/22/2023 15:14:32 Pain of left knee joint 5887170951 28640 M25.927 [id number] Yohannes Patricia MD [facility] [place] [address] [place] [address] 07/17/2023 08:43:07 07/17/2023 10:02:22 Osteoarthritis of left knee joint 5959190712 21994 M17.12 Health Concerns Section Related Observation LastModified by Organization Detai ls LastModified Time None Recorded Concern Status LastModified by Organization Details LastModified Time None Recorded Advance Directives Directive None Recorded Payers Insurance Date Sequence Insurance Name Policy Number Policy Jernigan Covered Member ID Jernigan Member ID Guarantor Name 04/24/2023 1 *SELF PAY* Demond Wong 04/24/2023 [place] Chino Wong [id number] Chino Wong 07/24/2023 1 [place] [id number] Chino Marvin [id number] Chino Wong Notes Date Note Type Note [...] 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 He still play softball on [...] country. He was in the ICU at [facility] for 22 days. He suffered [...] 07/31/2022 which on the AP view show euyz-xh-eqebxibq narrowing and sclerosis in the medial compartment joint space. The lateral view where the knee is flexed about 30 seems to suggest that there is csrh-br-wixt contact medial compartment. Anvil osteophyte is noted. Yohannes Patricia MD [address] [place] [address], [place] [address], [place], [address], [place] [facility] [place] [facility] 05/21/2023 18:03:09
== END 2025-03-17 13:56 | disposition home or self-care (01) ==
PROVIDERS: PCP Nurse Practitioner Family; Visit Provider Nurse Practitioner Family
DX: M71.22 Synovial cyst of popliteal space [Baker], left knee (principal); M25.462 Effusion, left knee
CPT/HCPCS: 76882

== ENCOUNTER 2025-04-20 12:36 | Outpatient (CLI) | payer BC, SELFPAY ==
--- NOTE | ~2025-04-20 | CT_ITS ---
EXAMINATION:CT diagnostic chest wo con DATE: 04/20/2025 13:06 INDICATION: Follow-up pulmonary nodules. TECHNIQUE: Computed tomography (CT) of the chest was performed without intravenous contrast. Automated exposure control and iterative reconstruction technique were employed. The dose-length product (DLP) was 233.12 mGy-cm. COMPARISON: Exam dated 10/20/2024. FINDINGS: Stable 6 mm nodule in the superior segment of left lower lobe, on image 45 of lung window series. Stable 5 mm nodule in the left lower lobe on image 88 of lung window series. No lymphadenopathy or effusion. Mild centrilobular pattern of emphysema. IMPRESSION: 1. Stable noncalcified nodules left lower lobe superior segment left lower lobe basal segment as described above, unchanged from 10/20/2024. Continued follow-up at six-month intervals for 2 years is needed to confirm benign process. Lung RADS category 3 Reviewed, dictated and finalized at location [facility] IMPRESSION: 1. Stable noncalcified nodules left lower lobe superior segment left lower lobe basal segment as described above, unchanged from 10/20/2024. Continued follow-u p at six-month intervals for 2 years is needed to confirm benign process. Lung RADS category 3
--- OUTSIDE RECORDS SUMMARY | 2025-04-20 14:00 | XMS_ITS | Clinical Summary ---
Author Organization [facility] [place] [address] Address [address] [place] [address] Care Team Providers Care Ripsaw Matcher Name Role Phone Princess Shah NP Primary Care Provider [phone] Allergies Active Allergy Reactions Criticality Noted Date Comments Benoxinate Hives High 10/04/2023 Fluorescein Sodium Hives High 10/04/2023 Itraconazole Rash,Unknown Medium 10/04/2023 Tropicamide Hives High 10/04/2023 Medications celecoxib (CeleBREX) 200 mg capsule Active escitalopram (LEXAPRO) 10 mg tablet Active Spiriva Respimat 2.5 mcg/actuation inhaler Inhale 2 puffs daily 03/09/2025 Active Hospital, Clinic, or Other Facility Administered Medication Ordered Dose Route Frequency Start Date End Date Status triamcinolone (KENALOG) 40 mg/mL injection 40 mgIndications:Bake r's cyst of knee, left 40 mg intra-artic One-Time Injection 04/06/2025 04/06/2025 Ended Active Problems No known active problems Encounters Date Type Department Care Team Description 04/06/2025 1:20 PM RAIL SETTER [facility] [address] [place] [address] Nath's cyst of knee, left 04/06/2025 1:00 PM RAIL SETTER [facility] [address] [place] [phone] Jaren Sneed MD Nath's cyst of knee, left (Primary Dx); Primary osteoarthritis of left knee 04/06/2025 8:14 AM RAIL SETTER - 04/06/2025 11:59 PM RAIL SETTER Hospital Encounter [facility] [address] [place] [address] Discharge Disposition: Discharge to home or self care 04/06/2025 8:00 AM RAIL SETTER Office Visit [facility] Orthopaedic Surgery [address] [place] [address] Joanie Arce NP Nath's cyst of knee, left (Primary Dx); Primary osteoarthritis of left knee; Left knee pain, unspecified chronicity from Last 3 Months Surgical History Surgery Date Site/Laterality Comments [place] VASECTOMY UNI/BI SPX W/PO STOP SEMEN EXAMS Surgery Vas Deferens Vasectomy - (Added by TW Conv) Social History Tobacco Use Types Packs/Day Years Used Date Smoking Tobacco: Former Cigarettes Tobacco Cessation:Counseling Given: Not Answered Sex and Gender Information Value Date Recorded Sex Assigned at Not on file Legal Sex Male 9:53 AM RAIL SETTER Gender Identity Not on file Sexual Orientation Not on file Last Filed Vital Signs Vital Sign Reading Time Taken Comments Blood Pressure - - Pulse - - Temperature - - Respiratory Rate - - Oxygen Saturation - - Inhaled Oxygen Concentration - - Weight 86.2 kg (190 lb) 04/06/2025 8:24 AM RAIL SETTER Height 182.9 cm (6') 04/06/2025 8:24 AM RAIL SETTER Body Mass Index 25.77 04/06/2025 8:24 AM RAIL SETTER Plan of Treatment Health Maintenance Due Date Last Done Comments Colon Cancer Screening-Colonoscopy 1971 Depression Screening 1971 Hepatitis C Screening 1971 Prostate Cancer Screening-PSA 1971 Hepatitis B Screening 1989 Regular Well Visit/Exam 18-64 1989 Zoster Vaccine (1 of 2) 2021 02/17/2020, 12/08 Covid-19 Vaccine ( season) 2025 12/05/2023, 05/10/2022, 05/02/2021, Additional history exists Influenza Vaccine (#1) 2025 , 03/23/2020, 06/09/2018 DTaP/Tdap/Td Vaccine (2 - Td or Tdap) 12/18/2025 12/19/2015 Pneumococcal vaccine <65 Aged Out 02/19/2025 No longer eligible based on patient's age to complete this topic Procedures Procedure Name Priority Date/Time Associated Diagnosis Comments POCUS ASP/INJ MAJOR JOINT Schedule Routine, Read Routine (OP Routine) 04/06/2025 1:15 PM RAIL SETTER Nath's cyst of knee, left [place] ARTHROCENTESIS ASPIR&/INJ MAJOR JT/BURSA W/US Routine 04/06/2025 1:00 PM RAIL SETTER Nath's cyst of knee, left XR KNEE LEFT 3 VIEWS Schedule Routine, Read Routine (OP Routine) 04/06/2025 8:23 AM RAIL SETTER Left knee pain, unspecified chronicity from Last 3 Months Results * POCUS ASP/INJ MAJOR JOINT (04/06/2025 1:15 PM RAIL SETTER) Narrative [facility] - 04/06/2025 1:15 PM RAIL SETTER This procedure was performed and interpreted by the provider. Please refer to the provider's procedure/OR operative note for results. Jaren Sneed MD POCUS ORDERABLES Fin al Result [facility] * [place] ARTHROCENTESIS ASPIR&/INJ MAJOR JT/BURSA W/US (04/06/2025 1:00 PM RAIL SETTER) Narrative Jaren Sneed MD - 04/06/2025 1:00 PM RAIL SETTER Jaren Sneed MD 04/06/2025 1:29 PM Large Joint Injection w/ Ultrasound Guidance: L knee Performed by: Jaren Sneed MD Authorized by: Joanie Arce NP Large Joint Injection/Aspiration: Consent Given by: Patient Site marked: the procedure site was marked Timeout: prior to procedure the correct patient, procedure, and site was verified Verbal consent obtained: Yes Supporting Documentation: Indications: Pain Procedure Details: Location: Knee Site: L knee (Nath's cyst) Prep: patient was prepped and draped in usual sterile fashion Needle Size: 25 G Approach: Superior lateral Ultrasound guided: Yes Fluroscopic guidance: No Ultrasound guidance used for: Pre-procedure marking and real-time guidance Sterile ultrasond techniques: Sterile gel and sterile probe covers were used Medications: 40 mg triamcinolone 40 mg/mL (intra-cystic) Aspirate amount (mL): 45 Aspirate: Clear and yellow Patient tolerance: Patient tolerated the procedure well with no immediate complications Joanie Arce NP IN CLINIC/BEDSIDE ORDERAB LES Final Result * XR Knee Left 3 View (04/06/2025 8:23 AM RAIL SETTER) Anatomical Region Laterality Modality Lower Extremities, Knee Left Digital Radiography 04/06/2025 9:02 AM RAIL SETTER Impressions 04/06/2025 9:02 AM RAIL SETTER Severe medial compartment osteoarthritis without acute abnormality. Electronically signed by: Cristopher Alexandre M.D. Narrative 04/06/2025 9:02 AM RAIL SETTER EXAMINATION: XR KNEE LEFT 3 VIEWS HISTORY: Chronic left knee pain COMPARISON: None. FINDINGS: Weightbearing images obtained. There is severe medial compartment joint space loss with dwlv-cu-lpyd apposition with spurring and sclerosis. The lateral compartment is maintained. There is mild patellofemoral spurring. There is no joint effusion. Quadriceps tendon calcifications present. No fracture or dislocation. Procedure Note Cristopher Alexandre III, MD - 04/06/2025 EXAMINATION: XR KNEE LEFT 3 VIEWS HISTORY: Chronic left knee pain COMPARISON: None. FINDINGS: Weightbearing images obtained. There is severe medial compartment joint space loss with rxpd-rl-iuos apposition with spurring and sclerosis. The lateral compartment is maintained. There is mild patellofemoral spurring. There is no joint effusion. Quadriceps tendon calcifications present. No fracture or dislocation. IMPRESSION: Severe medial compartment osteoarthritis without acute abnormality. Electronically signed by: Cristopher Alexandre M.D. Joanie Arce NP IMG XR PROCEDURES Final R esult from Last 3 Months Insurance [place] Care Teams Ripsaw Matcher Relationship Specialty Start Date End Date Princess Shah NP [address] [place] [address] PCP - General Family Medicine 03/19/25
--- OUTSIDE RECORDS SUMMARY | 2025-04-20 14:00 | XMS_ITS | Data Portability ---
Author Organization [place] [facility] [employer] [facility], Main Office Address [address] [place] [address] Care Team Providers Care Field Services Manager Name Role Phone RICHARDPAUL Primary Care Provider RICHARDPAUL Referring Provider [phone] Assessment Encounter Date Assessment Date Assessment LastModified by Organization Details LastModified Time 05/08/2023 05/08/2023 impression: Patient has nnww-ra-twek medial compartment osteoarthritis in the knee is [...] more than half the time spent in qfyb-fw-gvja care. Not available 05/21/2023 18:02:53 07/17/2023 07/17/2023 HPI: Patient returns. He is here for cortisone injection left knee. Last shot was 3 months ago. He does have fbrw-wm-xqcd medial compartment osteoarthritis. Takes Celebrex but only [...] procedure, administere d by provider 2023 024 In-Office Order, Internal Use Only DO Not Attach Compendium DO Not Attach Compendium, Do Not Delete/merge, [id number] 4 08:47:56 Surgeries None recorded. Imaging XR, knee 2022 023 [email or web address] [facility], [address] [facility] [address], [place], [address], 3 15:14:32 Medication Orders Kenalog 10 mg/mL suspension for injection 2023 024 [facility], [address] [place] [address], [address], 4 16:42:23 ropivacaine (PF) 5 mg/mL (0.5 %) injection solution 2023 024 [facility], [facility] [place], [address], 4 16:42:23 Patient TargetsNo targets recorded. Patient [...] XR, knee No observ ation record ed. [facility] [place] [address] [address], [place], [address], 05/21/2023 17:59:14 Result Notes None recorded. 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 Medical Equipment None Reported. Allergies Allergen ID Allergen Name Allergen Category Reaction Reaction Severity Criticality Documentation Date Start Date Code Code System Note Provider Name and Address Organization Details Recorded Time 47057 itraconaz ole medicatio n rash Not available Not available 07/25/2022 96351 RxNorm Not Available [facility] 3 20:39:10 Medications Name Sig Start Date [...] suspension for injection in office 2023 active [facility]: 0003- 0494- 20 Not Available Not Available [...] %) injection solution in office 2023 active [facility] 39325 -064- 01 Not Available Not Available Not Available Vitals Date Recorded Body height Provider Name an d Address Organization Details Last Updated DateTime 07/17/2023 182.88 cm Beadon Bender [employer] 07/17/2023 08:45:49 Date Recorded Body height Body mass index (BMI) Body weight Provider Name and Address Organization Details Last Updated DateTime 05/08/2023 182.88 cm 24.9 kg/m2 89987.56 g Bea Bender [employer] 05/08/2023 10:38:32 Social History None recorded. Functional [...] HAVE YOU BEEN HOSPITALIZED OR SEEN IN [facility] ER IN THE PAST YEAR ? [...] ICD10 Code Diagnosis IMO Codes Diagnosis Note [id number] Yohannes Patricia MD [facility] [place] [address] [place] [address] 05/08/2023 09:44:39 05/22/2023 15:14:32 Pain of left knee joint [id number] 16815 M25.039 [id number] Yohannes Patricia MD [facility] [place] [address] [place] [address] 07/17/2023 08:43:07 07/17/2023 10:02:22 Osteoarthritis of left knee joint 5242104910 30142 M17.12 Health Concerns Section Related Observation LastModified by Organization Detai ls LastModified Time None Recorded Concern Status LastModified by Organization Details LastModified Time None Recorded Advance Directives Directive None Recorded Payers Insurance Date Sequence Insurance Name Policy Number Policy Jernigan Covered Member ID Jernigan Member ID Guarantor Name 04/24/2023 1 *SELF PAY* Demond Wong 04/24/2023 [place] Chino Wong [id number] Chino Wong 07/24/2023 1 [place] [id number] Chino Marvin [id number] Chino Wong Notes Date Note Type Note [...] 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 He still play softball on [...] country. He was in the ICU at [facility] for 22 days. He suffered [...] 07/31/2022 which on the AP view show fchd-fo-pfctoyzc narrowing and sclerosis in the medial compartment joint space. The lateral view where the knee is flexed about 30 seems to suggest that there is qprz-xy-bgbm contact medial compartment. Anvil osteophyte is noted. Yohannes Patricia MD [address] [place] [address], [place] [address], [place], [address], [place] [facility] 05/21/2023 18:03:09
== END 2025-04-20 12:37 | disposition home or self-care (01) ==
PROVIDERS: PCP Nurse Practitioner Family; Visit Provider Physician Assistant
DX: R91.8 Other nonspecific abnormal finding of lung field (principal); Z87.891 Personal history of nicotine dependence
CPT/HCPCS: 71250